=== PATIENT | female | born 1960 | race Hispanic/Latino ===

== ENCOUNTER → 2017-09-06 | Outpatient (CLI) | payer BC ==
--- NOTE | 2017-09-06 15:54 | Diagnostic Imaging Report ---
EXAM: DXA BONE DENSITY INDICATIONS: Osteoporsis screening COMPARISON: None. FINDINGS: Proximal left femur total bone mineral density (BMD) (g/cm2):1.096 Femur T-score (standard deviation relative to young adult mean BMD): 1.0 Femur Z-score (standard deviation relative to age-matched control group):1.9 Proximal left femur neck bone mineral density (BMD) (g/cm2):0.938 Femur T-score (standard deviation relative to young adult mean BMD): 0.5 Femur Z-score (standard deviation relative to age-matched control group):1.7 Lumbar bone mineral density (BMD) (g/cm2):1.117 Lumbar T-score (standard deviation relative to young adult mean BMD): 0.6 Lumbar Z-score (standard deviation relative to age-matched control group):1.9 Change since prior exam (%): Femur:Not applicable. Spine:Not applicable. Change since oldest prior exam (%): Femur:Not applicable. Spine:Not applicable. CONCLUSION: 1. Bone mineral density in the left femur is classified as normal. Fracture risk is not increased. 2. Bone mineral density in the spine is classified as normal. Fracture risk is not increased. World Health Organization Classification: *The Z-score is provided for informational purposes. The T-score is preferable for clinical decisions. When comparing exams, a change of >4% is considered statistically significant. SUGGESTED RECOMMENDATIONS: Normal \T\ Osteopenia:Consideration should be given to use of calcium supplementation, daily multiple vitamins and adequate exercise, as preventive measures against osteoporosis, if clinically indicated. Osteoporosis \T\ Severe Osteoporosis:In addition to the above, consideration should be given to medical therapy against osteoporosis, if clinically indicated. Remy Vincent M.D. Dictated by: Remy Vincent M.D. on 09/06/2017 at 16:03 Electronically approved by: Remy Vincent M.D. on 09/06/2017 at 16:03
--- NOTE | 2017-09-12 15:47 | Diagnostic Imaging Report ---
#[id number] - MGSCRNBI #BILATERAL DIGITAL SCREENING MAMMOGRAM WITH CAD: 09/06/2017 CLINICAL: Routine screening. Comparison is made to exams dated: 12/20/2014 mammogram and 09/26/2013 mammogram - [facility]. Current study contains 4 films. There are scattered fibroglandular elements in both breasts. Current study was also evaluated with a Computer Aided Detection (CAD) system. There are benign calcifications in the right breast that are stable. No significant masses, calcifications, or other findings are seen in either breast. There has been no significant interval change. IMPRESSION: BENIGN There is no mammographic evidence of malignancy. A 1 year screening mammogram is recommended. The patient will be notified by letter of the results. Andrez Jhaveri Jr., D.O. cw/:09/12/2017 14:38:54 It Risk Analyst: Lety HUIZAR(Jl)(M), [facility] letter sent: Compared to Prior B9 Mammogram BI-RADS: 2 Benign
== END ==
LOC: MAMMO 14:06
PROVIDERS: ATTEND Family Medicine
DX: Z13.820 Encounter for screening for osteoporosis (principal)
CPT/HCPCS: 77080

== ENCOUNTER → 2017-09-22 | Outpatient (CLI) | payer BC ==
[~2017-09-22] MED LIST: IOPAMIDOL 370 MG/ML 200 ML INFUS..BTL INJ ONE; SODIUM CHLORIDE 0.9% 50ML 50 ML ONE
[2017-09-22 08:37] LABS: BLOOD UREA NITROGEN 10 mg/dL (7-26); BUN/CREATININE RATIO 16 (6-25); CREATININE, SERUM 0.62 mg/dL (0.57-1.11); EST GLOMERULAR FILTRATION RATE > 60 ML/MIN (60-)
--- NOTE | 2017-09-22 09:30 | Diagnostic Imaging Report ---
PROCEDURE:CT CHEST WITH CONTRAST COMPARISON:None. INDICATIONS:Right scapular region mass. TECHNIQUE: Routine protocol Volumetric CT chest after ministration of 100 mL Isovue-370 intravenous contrast. Multiplanar reformatted images. DLP: 461.84 FINDINGS: Lungs: Normal Airways: Normal Pleura: Normal Lymph nodes: Normal Pulmonary arteries: Normal Thoracic aorta and great vessels: Normal caliber. Heart and pericardium: Normal. Grossly normal coronary arteries. Subdiaphragmatic organs: Low-attenuation of the liver consistent with steatosis. Otherwise, normal Skeleton: Normal Soft tissues: 16 x 3 x 11 cm (trans x AP x craniocaudal) fat attenuation mass with a thin capsule within the superficial fat of the right posterior chest. Thin internal septations without mural nodularity or calcification. 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 No aggressive features to suggest malignancy. If the mass is associated with pain or other suspicious clinical features MRI with and without contrast would be recommended for further characterization. Consider surveillance imaging given size. Dictated by: Monico Younger M.D. on 09/22/2017 at 9:30 Electronically approved by: Monico Younger M.D. on 09/22/2017 at 9:30
== END ==
LOC: CT 07:30
PROVIDERS: ATTEND Surgery
DX: D17.1 Benign lipomatous neoplasm of skin and subcutaneous tissue of trunk (principal)
CPT/HCPCS: 36415; 71260; 82565; 84520; Q9967

== ENCOUNTER → 2017-11-01 | Day surgery (SDC) | payer BC ==
[2017-10-31 09:45] LABS: BASOPHILS # (AUTO) 0.1 (0.0-0.1); BASOPHILS % 0.6 % (0.0-1.0); EOSINOPHILS # (AUTO) 0.1 (0.0-0.4); EOSINOPHILS % 1.2 % (0.0-6.0); HEMATOCRIT 44.4 % (34.2-44.1); HEMOGLOBIN 14.5 g/dL (12.0-16.0); LYMPHOCYTES # (AUTO) 1.7 (1.0-3.2); LYMPHOCYTES % 21.2 % (18.0-39.1); MEAN CORPUSCULAR HEMOGLOBIN 26.9 pg (28-32); MEAN CORPUSCULAR HGB CONC 32.7 g/dL (31-35); MEAN CORPUSCULAR VOLUME 82.2 fL (81-99); MONOCYTES # (AUTO) 0.6 (0.2-0.8); MONOCYTES % 6.9 % (4.4-11.3); NEUTROPHILS # (AUTO) 5.7 (2.1-6.9); NEUTROPHILS % 69.7 % (38.7-80.0); PLATELET COUNT 241 x10e3/uL (140-360); RED CELL DISTRIBUTION WIDTH 13.5 % (11.7-14.4)
[2017-10-31 10:07] LABS: ANION GAP 17.3 mmol/L (8-16); BLOOD UREA NITROGEN 9 mg/dL (7-26); BUN/CREATININE RATIO 14 (6-25); CALCIUM 9.5 mg/dL (8.4-10.2); CARBON DIOXIDE 27 mmol/L (22-29); CHLORIDE 103 mmol/L (98-107); CREATININE, SERUM 0.66 mg/dL (0.57-1.11); EST GLOMERULAR FILTRATION RATE > 60 ML/MIN (60-); GLUCOSE 161 mg/dL (74-118); POTASSIUM 4.3 mmol/L (3.5-5.1); SODIUM 143 mmol/L (136-145)
[~2017-11-01] MED LIST changes: +ACETAMINOPHEN 1000 MG/100 ML IV ONE; +ATORVASTATIN CA20 MG PO; +BEDOYECTA PO; +BUPIVACAINE 0.25%/EPI 30ML SDV INJ ONE; +DEXAMETHASONE SOD PHOS INJ 4 MG/ML VIAL ONE; +FENTANYL CITRATE/PF 100MCG/2 ML INJ ONE; +GLYCOPYRROLATE INJ 1MG/ 5 ML SYR ONE; -IOPAMIDOL 370 MG/ML 200 ML INFUS..BTL INJ ONE; +KETOROLAC TROMETHAMINE 30 MG/ML VIAL ONE; +LEVEMIR100 UNIT/1 SC; +LIDOCAINE HCL 2% LOCAL INJ 5 ML SDV VIAL INJ ONE; +METFORMIN HCL500 M2 PO; +METOCLOPRAMIDE HCL 10 MG/2ML VIAL ONE; +MIDAZOLAM HCL 2 MG/2 ML VIAL ONE; +NEOSTIGMINE 5 MG/5ML SYR ONE; +NOVOLOG100 UNIT/1 SC; +ONDANSETRON HCL INJ 2 MG/ML VIAL ONE; +PROPOFOL IV EMULSION 10 MG/ML 20 ML VIAL ONE; +ROCURONIUM BROMIDE 10 MG/ML 5ML VIAL ONE; +SEVOFLURANE INHAL SOLN 250 ML PEN BTL ONE; -SODIUM CHLORIDE 0.9% 50ML 50 ML ONE; +VASOTEC10 MG PO
--- OUTSIDE RECORDS SUMMARY | 2017-11-01 07:06 | XMS REPORT ---
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 Allergies, Adverse Reactions, Alerts This patient has no known allergies or adverse reactions. Medications This patient has no known medications. Results Test Description Test Time Test Comments Text Results Atomic Results Result Comments CT CHEST W [place] [address] Patient Name: CAMRON WADDELL MR #: [id number] : 1960 Age/Sex: 57/F Req #: [id number] [facility] Physician: Ordered by: VENESSA RODRIGUEZ MD Report #: [id number] Location: CT Room/Bed: Procedure: [id number] CT/CT CHEST W Exam Date: 09/22/17 Exam Time: 0852 REPORT STATUS: Signed PROCEDURE: CT CHEST WITH CONTRAST COMPARISON: None. INDICATIONS: Right scapular region mass. TECHNIQUE: Routine protocol Volumetric CT chest after ministration of 100 mL Isovue- 370 intravenous contrast. Multiplanar reformatted images. DLP: 461.84 FINDINGS: Lungs: Normal Airways: Normal Pleura: Normal Lymph nodes: Normal Pulmonary arteries: Normal Thoracic aorta and great vessels: Normal caliber. Heart and pericardium: Normal. Grossly normal coronary arteries. Subdiaphragmatic organs: Low-attenuation of the liver consistent with steatosis. Otherwise, normal Skeleton: Normal Soft tissues: 16 x 3 x 11 cm (trans x AP x craniocaudal) fat attenuation mass with a thin capsule within the superficial fat of the right posterior chest. Thin internal septations without mural nodularity or calcification. 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 No aggressive features to suggest malignancy. If the mass is associated with pain or other suspicious clinical features MRI with and without contrast would be recommended for further characterization. Consider surveillance imaging given size. Dictated by: Jennifer Younger M.D. on 09/22/2017 at 9:30 Electronically approved by: Jennifer Younger M.D. on 09/22/2017 at 9:30 Dictated By: JENNIFER YOUNGER MD 9 Transcribed By: MERARI on 09/22/17929 COPY TO: VENESSA RODRIGUEZ MD BONE DXA DUAL ENERGY [place] [address] Patient Name: CAMRON WADDELL MR #: [id number] : 1960 Age/Sex: 57/F Req #: [id number] Adm Physician: Ordered by: RONNI KOHLER MD Report #: [id number] Location: [facility] Room/Bed: Procedure: [id number] DX/BONE DXA DUAL ENERGY Exam Date: Exam Time: REPORT STATUS: Signed EXAM: DXA BONE DENSITY INDICATIONS: Osteoporsis screening COMPARISON: None. FINDINGS: Proximal left femur total bone mineral density (BMD) (g/cm2): 1.096 Femur T- score (standard deviation relative to young adult mean BMD): 1.0 Femur Z- score (standard deviation relative to age-matched control group): 1.9 Proximal left femur neck bone mineral density (BMD) (g/cm2): 0.938 Femur T -score (standard deviation relative to young adult mean BMD): 0.5 Femur Z -score (standard deviation relative to age-matched control group): 1.7 Lumbar bone mineral density (BMD) (g/cm2): 1.117 Lumbar T-score ( standard deviation relative to young adult mean BMD): 0.6 Lumbar Z-score (standard deviation relative to age-matched control group): 1.9 Change since prior exam (%): Femur: Not applicable. Spine: Not applicable. Change since oldest prior exam (%): Femur: Not applicable. Spine: Not applicable. CONCLUSION: 1. Bone mineral density in the left femur is classified as normal. Fracture risk is not increased. 2. Bone mineral density in the spine is classified as normal. Fracture risk is not increased. World Health Organization Classification: *The Z- score is provided for informational purposes. The T-score is preferable for clinical decisions. When comparing exams, a change of >4% is considered statistically significant. SUGGESTED RECOMMENDATIONS: Normal T Osteopenia : Consideration should be given to use of calcium supplementation, daily multiple vitamins and adequate exercise, as preventive measures against osteoporosis, if clinically indicated. Osteoporosis T Severe Osteoporosis: In addition to the above, consideration should be given to medical therapy against osteoporosis, if clinically indicated. Jude Vincent M.D. Dictated by: Jude Vincent M.D. on 09/06/2017 at 16:03 Electronically approved by: Jude Vincent M.D. on 09/06/2017 at 16 :03 Dictated By: JUDE VINCENT MD 1603 Transcribed By: MERARI on 09/06/17 1603 COPY TO: RONNI KOHLER MD MAMMOGRAM DIGITAL SCR [place] [address] Patient Name: CAMRON WADDELL MR #: [id number] : 1960 Age/Sex: 57/F Req #: [id number] [facility] Physician: Ordered by: RONNI KOHLER MD Report #: [id number] Location: MAMMO Room/Bed: Procedure: [id number] MG/MAMMOGRAM DIGITAL SCR BI Exam Date: 09/06/17 Exam Time: 1411 REPORT STATUS: Signed #[id number] - MGSCRNBI #BILATERAL DIGITAL SCREENING MAMMOGRAM WITH CAD: 09/06/2017 CLINICAL: Routine screening. Comparison is made to exams dated: 2014 mammogram and 09/26/2013 mammogram - [facility]. Current study contains 4 films. There are scattered fibroglandular elements in both breasts. Current study was also evaluated with a Computer Aided Detection (CAD) system. There are benign calcifications in the right breast that are stable. No significant masses, calcifications, or other findings are seen in either breast. There has been no significant interval change. IMPRESSION: BENIGN There is no mammographic evidence of malignancy. A 1 year screening mammogram is recommended. The patient will be notified by letter of the results. Jose R Jhaveri Jr., D.O. cw/:2017 14:38:54 Lubricating Machine Tender: Lety HUIZAR(R)(M), [facility] letter sent: Compared to Prior B9 Mammogram BI- RADS: 2 Benign Dictated By: JOSE R JHAVERI DO 1438 Transcribed By: MARK on 09/12/17 1438 COPY TO: RONNI KOHLER MD
--- NOTE | 2017-11-01 10:57 | Operative Report ---
DATE OF PROCEDURE: November 01, 2017 PREOPERATIVE DIAGNOSIS: Large mass of the right subscapular region. POSTOPERATIVE DIAGNOSIS: Large mass of the right subscapular region, probable lipoma. OPERATION PERFORMED: Excision of large subscapular mass. ANESTHESIA: General. COMPLICATIONS: None. ESTIMATED BLOOD LOSS: Minimal. DESCRIPTION OF PROCEDURE: With the patient lying in bed in the lateral position, under good general endotracheal anesthesia, the back was prepped with Betadine solution and draped in the usual manner. The subscapular area was then infiltrated with 1/4 percent Marcaine with epinephrine. An incision was made. It was carried down through the subcutaneous tissue and through the superficial fascia, and immediately a well-encapsulated, multilobulated, lipomatous mass was encountered, which was slowly and carefully from all of the surrounding structures. It was stuck to the musculature, and it was slowly and carefully completely and totally and completely removed and sent for pathological examination. The whole area was then thoroughly irrigated. Perfect hemostasis was ascertained. The superficial fascia was then reapproximated with interrupted sutures of 3-0 Vicryl. The subcutaneous tissue was approximated with 3-0 Vicryl, and the skin was closed with interrupted vertical mattress sutures of 3-0 silk. Dressing was applied. The sponge, lap and needle count was correct. Patient tolerated the procedure well and returned to the recovery room in stable condition. Job#: [id number]
== END | disposition home or self-care (01) ==
LOC: OR 07:04
PROVIDERS: ATTEND Surgery
DX: D17.79 Benign lipomatous neoplasm of other sites (principal); I10 Essential (primary) hypertension; E78.5 Hyperlipidemia, unspecified; E11.9 Type 2 diabetes mellitus without complications; K21.9 Gastro-esophageal reflux disease without esophagitis; Z01.810 Encounter for preprocedural cardiovascular examination; Z01.812 Encounter for preprocedural laboratory examination; Z79.4 Long term (current) use of insulin; Z87.891 Personal history of nicotine dependence
CPT/HCPCS: 23071; 36415 ×2; 80048; 82948; 85025; 88304; 93005; J1100; J1885; J2001; J2250; J2405; J2765

== ENCOUNTER → 2019-09-27 | Outpatient (CLI) | payer BC ==
[~2019-09-27] MED LIST changes: -ACETAMINOPHEN 1000 MG/100 ML IV ONE; -BUPIVACAINE 0.25%/EPI 30ML SDV INJ ONE; -DEXAMETHASONE SOD PHOS INJ 4 MG/ML VIAL ONE; -FENTANYL CITRATE/PF 100MCG/2 ML INJ ONE; -GLYCOPYRROLATE INJ 1MG/ 5 ML SYR ONE; -KETOROLAC TROMETHAMINE 30 MG/ML VIAL ONE; -LIDOCAINE HCL 2% LOCAL INJ 5 ML SDV VIAL INJ ONE; -METOCLOPRAMIDE HCL 10 MG/2ML VIAL ONE; -MIDAZOLAM HCL 2 MG/2 ML VIAL ONE; -NEOSTIGMINE 5 MG/5ML SYR ONE; -ONDANSETRON HCL INJ 2 MG/ML VIAL ONE; -PROPOFOL IV EMULSION 10 MG/ML 20 ML VIAL ONE; -ROCURONIUM BROMIDE 10 MG/ML 5ML VIAL ONE; -SEVOFLURANE INHAL SOLN 250 ML PEN BTL ONE
--- NOTE | 2019-09-27 13:50 | Diagnostic Imaging Report ---
EXAM: BONE MINERAL DENSITY HISTORY: Screening COMPARISON: None DISCUSSION: Evaluation of the left hip and lumbar spine was performed utilizing DEXA Hologic bone densitometer. The study is technically adequate. The patient's fracture risk is compared to an age-matched control. The patient denies prior surgery/fracture of the spine, hips or forearm. Left hip femoral neck bone mineral density: 0.939 g/cm2, T-score is 0.5, Z-score is 1.8. Left hip total bone mineral density: 1.05 g/cm2, T-score is 0.7, Z-score is 1.7. Lumbar spine total bone mineral density: 1.129 gm/cm2, T-score is 0.7, Z-score is 2.2. Impression: Bone mineralization by WHO Classification is normal, the fracture risk is not increased. Signed by: Cayetano Gross MD on 09/27/2019 1:48 PM
== END ==
LOC: MAMMO 08:43
PROVIDERS: ATTEND Family Medicine
DX: Z12.31 Encounter for screening mammogram for malignant neoplasm of breast (principal); M81.0 Age-related osteoporosis without current pathological fracture
CPT/HCPCS: 77067; 77080

== ENCOUNTER 2021-05-12 09:00 | Outpatient (RCR) | payer BC | END 2021-05-24 | LOC: OT 09:00 | PROVIDERS: ATTEND Specialist | DX: M25.512 Pain in left shoulder (principal); M25.511 Pain in right shoulder ==

== ENCOUNTER 2022-11-23 23:30 | Emergency (ER) | payer BC ==
[~2022-11-23] VITALS: Ht 152.4 cm; Wt 104.3 kg
[2022-11-23 23:48] LABS: BASOPHILS # (AUTO) 0.1 (0.0-0.1); BASOPHILS % 0.6 % (0.0-1.0); EOSINOPHILS # (AUTO) 0.2 (0.0-0.4); EOSINOPHILS % 1.9 % (0.0-6.0); HEMATOCRIT 44.7 % (34.2-44.1); HEMOGLOBIN 14.4 g/dL (12.0-16.0); LYMPHOCYTES # (AUTO) 3.2 (1.0-3.2); LYMPHOCYTES % 36.4 % (18.0-39.1); MEAN CORPUSCULAR HEMOGLOBIN 27.4 pg (28-32); MEAN CORPUSCULAR HGB CONC 32.2 g/dL (31-35); MEAN CORPUSCULAR VOLUME 85.1 fL (81-99); MONOCYTES # (AUTO) 0.5 (0.2-0.8); MONOCYTES % 6.1 % (4.4-11.3); NEUTROPHILS # (AUTO) 4.9 (2.1-6.9); NEUTROPHILS % 54.8 % (38.7-80.0); PLATELET COUNT 259 x10e3/uL (140-360); RED BLOOD COUNT 5.25 x10e6/uL (3.6-5.1); RED CELL DISTRIBUTION WIDTH 13.8 % (11.7-14.4)
[2022-11-24 00:04] LABS: ANION GAP 16.9 mmol/L (8-16); CALCIUM 9.6 mg/dL (8.4-10.2); CREATININE, SERUM 0.71 mg/dL (0.57-1.11); POTASSIUM 3.9 mmol/L (3.5-5.1)
== END 2022-11-24 03:15 | disposition home or self-care (01) ==
LOC: ER 23:37
DX: R53.1 Weakness (principal); T38.3X1A Poisoning by insulin and oral hypoglycemic [antidiabetic] drugs, accidental (unintentional), initial encounter; E11.65 Type 2 diabetes mellitus with hyperglycemia; Y92.89 Other specified places as the place of occurrence of the external cause
CPT/HCPCS: 36415; 80048; 82948; 85025; 99283

== ENCOUNTER → 2022-12-06 | Outpatient (CLI) | payer BC | LOC: MAMMO 09:23 | PROVIDERS: ATTEND Family Medicine | DX: Z12.31 Encounter for screening mammogram for malignant neoplasm of breast (principal); Z13.820 Encounter for screening for osteoporosis | CPT/HCPCS: 77067; 77080 ==

== ENCOUNTER → 2025-03-27 | Outpatient (REF) | payer MEDICARE | LOC: MAMMO 13:19 | PROVIDERS: ATTEND Family Medicine | DX: Z12.31 Encounter for screening mammogram for malignant neoplasm of breast (principal) | CPT/HCPCS: 77067 ==